=== PATIENT | male | born 1970 | race Caucasian/White ===

== ENCOUNTER 2018-06-08 21:22 | Emergency (ER) | payer OTHER ==
[~2018-06-08] VITALS: Ht 180.3 cm; Wt 102.1 kg
[2018-06-08 21:27] VITALS: Ht 180.3 cm; Wt 102.1 kg
[2018-06-09 00:56] VITALS: BP 130/81
[2018-06-09 02:47] LABS: SOURCE FLUID SYNOVIAL FLUID
[2018-06-09 02:48] LABS: SITE FLUID RIGHT
[2018-06-09 03:43] LABS: APPEARANCE FLUID CLOUDY; COLOR FLUID YELLOW; RBC FLUID 825 /cumm; SITE FLUID RIGHT; SOURCE FLUID SYNOVIAL FLUID; WBC FLUID 4000 /cumm
[2018-06-09 05:03] LABS: LYMPHOCYTE FLUID 32 %; MONOCYTE FLUID 15 %
== END 2018-06-09 00:56 | disposition home or self-care (01) ==
LOC: ED 21:22
PROVIDERS: Emergency Medicine
DX: M71.9 Bursopathy, unspecified (principal)
CPT/HCPCS: J1885; J2001

== ENCOUNTER 2019-03-30 07:14 | Emergency (ER) | payer OTHER ==
[~2019-03-30] VITALS: Ht 180.3 cm; Wt 103.9 kg
[2019-03-30 07:17] VITALS: Ht 180.3 cm; Wt 103.9 kg
[2019-03-30 08:04] VITALS: BP 127/80
== END 2019-03-30 08:04 | disposition home or self-care (01) ==
LOC: ED 07:14
DX: S01.81XA Laceration without foreign body of other part of head, initial encounter (principal); Z98.890 Other specified postprocedural states; W21.05XA Struck by basketball, initial encounter; Y93.67 Activity, basketball; Y92.89 Other specified places as the place of occurrence of the external cause; Y99.8 Other external cause status
CPT/HCPCS: J2001